=== PATIENT | female | born 1995 | race Two or more races ===

== ENCOUNTER → 2020-06-13 | Outpatient (CLI) | payer OTHER | END | disposition home or self-care (01) | LOC: PRENATAL 10:00 | PROVIDERS: ATTEND Obstetrics & Gynecology Maternal & Fetal Medicine | DX: O35.0XX1 Maternal care for (suspected) central nervous system malformation in fetus, fetus 1 (principal); O36.80X1 Pregnancy with inconclusive fetal viability, fetus 1; O35.3XX1 Maternal care for (suspected) damage to fetus from viral disease in mother, fetus 1; O98.512 Other viral diseases complicating pregnancy, second trimester; O28.1 Abnormal biochemical finding on antenatal screening of mother; O41.02X1 Oligohydramnios, second trimester, fetus 1; Z36.89 Encounter for other specified antenatal screening; Z3A.19 19 weeks gestation of pregnancy ==

== ENCOUNTER 2020-06-28 20:44 | Inpatient (IN) | payer OTHER ==
[~2020-06-28] VITALS: Ht 152.4 cm; Wt 66.7 kg
[2020-06-28] MEDS ORDERED: PRENATAL CAPLE1 EAC1 PO (21:39)
== END 2020-06-30 15:25 | disposition home or self-care (01) | DRG 807 ==
LOC: LDR 20:44 → OB/GYN 20:44
PROVIDERS: ADMIT Obstetrics & Gynecology; ATTEND Obstetrics & Gynecology
PROC: 10E0XZZ Delivery of Products of Conception, External Approach (ICD-10-PCS; principal; 2020-06-28)
PROC: 4A1HXFZ Monitoring of Products of Conception, Cardiac Rhythm, External Approach (ICD-10-PCS; 2020-06-28)
DX: O36.4XX0 Maternal care for intrauterine death, not applicable or unspecified (principal); Z37.1 Single stillbirth; Z3A.24 24 weeks gestation of pregnancy; Z20.822 Contact with and (suspected) exposure to COVID-19

== ENCOUNTER 2021-11-07 13:00 | Inpatient (IN) | payer OTHER ==
[~2021-11-07] VITALS: Ht 152.4 cm; Wt 76.7 kg
[~2021-11-07 13:00] MED LIST: PRENATAL CAPLE1 EAC1 PO
== END 2021-11-10 14:37 | disposition home or self-care (01) | DRG 807 ==
LOC: LDR 11-08 11:34 → OB/GYN 11-08 11:34
PROVIDERS: ADMIT Obstetrics & Gynecology; ATTEND Obstetrics & Gynecology
PROC: 10E0XZZ Delivery of Products of Conception, External Approach (ICD-10-PCS; principal; 2021-11-08)
PROC: 0W8NXZZ Division of Female Perineum, External Approach (ICD-10-PCS; 2021-11-08)
PROC: 4A1HXCZ Monitoring of Products of Conception, Cardiac Rate, External Approach (ICD-10-PCS; 2021-11-08)
DX: O99.820 Streptococcus B carrier state complicating pregnancy (principal); Z3A.39 39 weeks gestation of pregnancy; Z37.0 Single live birth; Z20.822 Contact with and (suspected) exposure to COVID-19